=== PATIENT | female | born 1975 | race Two or more races ===

== ENCOUNTER 2016-10-01 16:37 | Emergency (ER) | payer SELFPAY ==
[~2016-10-01] VITALS: Ht 165.1 cm; Wt 72.6 kg
[2016-10-01 17:59] LABS: Basophils # (auto) 0 uL; Basophils % (auto) 0.6 % (0.0-2.0); Eosinophils # (auto) 0.1 uL; Eosinophils % (auto) 2.1 % (0.0-7.0); Hematocrit 39.7 % (36.0-46.0); Hemoglobin 13.3 g/dL (12.2-16.2); Lymphocytes # (auto) 2.6 uL; Lymphocytes % (auto) 36.6 % (10.0-50.0); Mean Corpuscular Hemoglobin 29.1 pg (28.0-32.0); Mean Corpuscular Hgb Conc. 33.4 g/dL (32.0-36.0); Mean Corpuscular Volume 87.2 fL (80.0-100.0); Mean Platelet Volume 11.1 fL (7.4-10.4); Monocytes # (auto) 0.6 uL; Monocytes % (auto) 8.1 % (0.0-12.0); Neutrophils # (auto) 3.8 uL; Neutrophils % (auto) 52.6 % (37.0-80.0); Platelet Count (auto) 206 10^3/uL (140-450); Red Cell Distribution Width 14.3 % (11.6-16.0); White Blood Cell 7.2 10^3/uL (4.4-10.8)
[2016-10-01 18:25] LABS: Albumin 3.9 g/dL (3.4-5.0); Alkaline Phosphatase 63 U/L (45-117); Anion Gap 7 (5-15); Aspartate Aminotransferase 11 U/L (15-37); BUN/Creatinine Ratio 31.7; Bilirubin, Total 0.3 mg/dL (0.2-1.0); Blood Urea Nitrogen 20 mg/dL (7-18); Calcium 8.9 mg/dL (8.5-10.1); Carbon Dioxide 28 mmol/L (21-32); Chloride 106 mmol/L (98-107); GFR African American 133 mL/min; GFR Non-African American 110 mL/min; Glucose 81 mg/dL (74-106); Potassium 3.8 mmol/L (3.5-5.1); Sodium 141 mmol/L (136-145); Total Protein 7.3 g/dL (6.4-8.2)
[2016-10-02 04:00] VITALS: BP 128/41
== END 2016-10-02 06:02 | disposition home or self-care (01) ==
LOC: ER 16:42
DX: S16.1XXA Strain of muscle, fascia and tendon at neck level, initial encounter (principal); R07.89 Other chest pain; X58.XXXA Exposure to other specified factors, initial encounter; Y93.89 Activity, other specified; Y99.8 Other external cause status; Y92.89 Other specified places as the place of occurrence of the external cause
CPT/HCPCS: 36415; 71020; 72125; 80053; 84484; 85025; 93005

== ENCOUNTER 2017-05-28 01:10 | Emergency (ER) | payer MEDICAID ==
[~2017-05-28] VITALS: Ht 167.6 cm; Wt 54.0 kg
[2017-05-28] MEDS ORDERED: diphenhdrAMINE HCL 50 MG/1 ML VL ONE (01:16)
[2017-05-28] MEDS ORDERED: methylPREDNISolone SOD SUCC 125 MG/2 ML VL IV ONE (01:30)
[2017-05-28] MEDS ORDERED: diphenhdrAMINE HCL 50 MG/1 ML VL IV ONE (01:30)
[2017-05-28] MEDS ORDERED: EPINEPHrine HCL 1 MG/1 ML AMP SC ONE (02:30)
[2017-05-28 02:59] VITALS: BP 123/72
[2017-05-28] MEDS ORDERED: FAMOTIDINE (10MG/ML) 2ML VL IV ONE ×2 (03:15)
== END 2017-05-28 03:52 | disposition home or self-care (01) ==
LOC: ER 01:11
DX: T78.40XA Allergy, unspecified, initial encounter (principal); Z88.8 Allergy status to other drugs, medicaments and biological substances
CPT/HCPCS: 96372; 96374; 96375; 99284; J0171; J1200; J2930; J3490